=== PATIENT | male | born 1975 | race Two or more races ===

== ENCOUNTER 2017-11-26 09:22 | Outpatient (CLI) | payer MEDICAID, OTHER ==
[~2017-11-26 09:22] MED LIST: PHEN60TA11
[2017-11-26 10:08] LABS: BASOPHILS % (AUTO) 0.5 % (0.0-2.0); EOSINOPHILS # (AUTO) 0.3 K/uL (0.0-0.4); EOSINOPHILS % (AUTO) 3.8 % (0.0-4.0); HEMATOCRIT 48.1 % (36-54); HEMOGLOBIN 16.5 g/dL (14.0-18.0); MEAN CORPUSCULAR HEMOGLOBIN 31 pg (27-31); MEAN CORPUSCULAR HGB CONC 34 % (32-36); MEAN CORPUSCULAR VOLUME 90 fL (79.0-98.0); MONOCYTES # (AUTO) 0.5 K/uL (0.0-1.0); MONOCYTES % (AUTO) 7.1 % (1.7-9.3); NEUTROPHILS # (AUTO) 4.3 K/uL (1.8-7.7); NEUTROPHILS % (AUTO) 60.6 % (40.0-70.0); PLATELET COUNT (AUTO) 228 K/uL (130-430); RED BLOOD CELL COUNT(AUTO) 5.36 MIL/uL (4.2-6.2); RED CELL DISTRIBUTION WIDTH 12.5 % (9.0-15.0); WHITE BLOOD COUNT (AUTO) 7.1 K/uL (4.8-10.8)
[2017-11-26 10:29] LABS: ALBUMIN 4.4 g/dL (3.4-4.8); CALCIUM 9.5 mg/dL (8.4-11.0); CREATININE 0.93 mg/dL (0.55-1.30); POTASSIUM 4.1 mmol/L (3.5-5.1); THYROID STIMULATING HORMONE 0.96 uIu/mL (0.34-4.82); TOTAL BILIRUBIN 0.4 mg/dL (0.0-1.0)
[2017-11-27 23:13] LABS: HEMOGLOBIN A1C 5.2 % (4.8-5.6)
[2017-11-28 07:12] LABS: FOLATE (FOLIC ACID) 11.8 ng/mL (>3.0)
[2017-11-28 11:59] LABS: MICROALBUMIN/CREAT RATIO, UR >2.3 MG/G CRE (0.0-30.0)
[2017-11-28 12:03] LABS: CREATININE, URINE 128 mg/dL; MICROALBUMIN URINE RANDOM < 3.0 ug/ml (NOT ESTABLISHED)
== END 2017-11-26 23:18 | disposition home or self-care (01) ==
LOC: SLB 09:22
PROVIDERS: ATTEND Family Medicine
DX: Z00.01 Encounter for general adult medical examination with abnormal findings (principal); Z13.1 Encounter for screening for diabetes mellitus; Z13.6 Encounter for screening for cardiovascular disorders; Z51.81 Encounter for therapeutic drug level monitoring; R79.89 Other specified abnormal findings of blood chemistry; E55.9 Vitamin D deficiency, unspecified; D51.0 Vitamin B12 deficiency anemia due to intrinsic factor deficiency; D52.9 Folate deficiency anemia, unspecified; Z88.5 Allergy status to narcotic agent
CPT/HCPCS: 36415; 80053; 80061; 80184-TC; 82043; 82306; 82570; 82607; 82746; 83036; 84443-TC; 85025

== ENCOUNTER 2019-10-18 22:54 | Emergency (ER) | payer OTHER ==
[~2019-10-18] VITALS: Ht 172.7 cm; Wt 83.9 kg
[2019-10-18 22:54] VITALS: BP_SYST 122
[2019-10-19] MEDS ORDERED: methylPREDNISolone SOD SUCC 500 MG/VIAL (Solu-MEDROL) IV ONE
[2019-10-19] MEDS ORDERED: methylPREDNISolone SOD SUCC/PF 62.5 MG/ML VIAL ONE (00:48)
[2019-10-19] MEDS ORDERED: FAMOTIDINE PF 20 MG/2 ML VIAL ONE (00:51)
[2019-10-19 06:44] VITALS: BP_SYST 122
== END 2019-10-19 06:44 | disposition home or self-care (01) ==
LOC: SED 22:54
DX: T78.3XXA Angioneurotic edema, initial encounter (principal); Z88.6 Allergy status to analgesic agent; X58.XXXA Exposure to other specified factors, initial encounter
CPT/HCPCS: 96374; 99283; J2930; J3490